=== PATIENT | female | born 1965 | race Caucasian/White ===

== ENCOUNTER → 2017-08-27 | Outpatient (CLI) | payer OTHER ==
--- NOTE | 2017-08-27 10:40 | DIAGNOSTIC IMAGING REPORT ---
L INJ MAJOR JNT SHLDR,HIP,KNEE CLINICAL HISTORY: LEFT HIP PAINpain COMPARISON STUDY: None FLUOROSCOPY TIME: 11 seconds. FINDINGS: Following description of the procedure and informed consent, a 22-gauge needle was advanced to the left hip joint space. A test injection confirmed its intra-articular location. This is followed by the administration of steroid bupivicaine combination. There were no complications. IMPRESSION: Successful therapeutic injection left hip. The above report was generated using voice recognition software. It may contain grammatical, syntax or spelling errors. Electronically signed by: Elan Forman M.D. 08/27/2017 10:39 AM Dictated Date/Time: 08/27/2017 10:35 AM
== END | disposition home or self-care (01) ==
LOC: EDSEX 09:29 → C.RADBC 09:29
PROVIDERS: ATTEND Orthopaedic Surgery
DX: M16.12 Unilateral primary osteoarthritis, left hip (principal)